=== PATIENT | female | born 1955 | race Two or more races ===

== ENCOUNTER → 2024-07-03 | Outpatient (CLI) | payer MEDICAID, SELFPAY ==
--- NOTE | 2024-07-03 09:30 | XR_ITS ---
EXAMINATION: XR esophogram standard HISTORY: 69-year-old female with upper esophageal dysphagia. COMPARISON: None TECHNIQUE: Assistant Front Office Manager radiographs of the chest and lateral neck were followed by multiple fluoroscopic images of the lower neck, chest, and abdomen during and after the uneventful administration of oral thin barium. FLUOROSCOPY TIME: 0.75 min AIR KERMA: 122.6 mGy FINDINGS: No pneumothorax or pleural effusion. Uncoiled aorta. Hiatal hernia. No consolidation. Calcifications aortic arch. No prevertebral soft tissue swelling. Calcific density left lateral neck, probably vascular. Degenerative changes of the cervical spine. Dental amalgam. No penetration or aspiration. No diverticulum identified. Intact primary and secondary contractions of the esophagus. Mild mass effect from aortic arch. Otherwise no intrinsic or extrinsic mass effect. Moderate to large hiatal hernia. Spontaneous gastroesophageal reflux to the level the clavicles. Ligament of Treitz in normal anatomic position. IMPRESSION: Moderate to large hiatal hernia with spontaneous gastroesophageal reflux to the level of the clavicles.
== END | disposition home or self-care (01) ==
LOC: SDIM 09:03
DX: K21.9 Gastro-esophageal reflux disease without esophagitis (principal); K44.9 Diaphragmatic hernia without obstruction or gangrene
CPT/HCPCS: 74220; A4699

== ENCOUNTER 2025-02-23 11:05 | Day surgery (SDC) | payer MEDICAID, SELFPAY ==
[2025-02-23] VITALS (14 sets, daily range): BP systolic 141–200; BP diastolic 65–91; PULSE 55–78; RESP 12–18; TEMP 36.1–36.7; O2SAT 95–100; BMI 28.0
--- NOTE | 2025-02-23 16:30 | SUR.OPER ---
AWARE OF PATIENT'S CONTINUED ELEVATED BLOOD PRESSURE, NO NEW ORDERS RECEIVED AT THIS TIME.
--- NOTE | 2025-02-23 16:45 | SUR.PHASEI ---
Arrived to [facility] via [facility]. Report received from Erica BANEGAS. No c/o pain or discomfort. No s/o distress. Responding to questions and commands appropriately.
--- NOTE | 2025-02-23 17:20 | SUR.PHASEII ---
Tolerating iced water PO. No complaints at this time.
--- NOTE | 2025-02-23 17:34 | SUR.PHASEII ---
Waiting for daughter to come receive discharge instructions. [place] she is on the way from [facility].
--- NOTE | 2025-02-23 18:10 | SUR.PHASEII ---
Discharged to daughter Brianne. Both patient and daughter Brianne verbalized understanding discharge instructions.
== END 2025-02-23 18:10 | disposition home or self-care (01) ==
PROVIDERS: Referring Provider Specialist; Visit Provider Specialist
PROC: (CPT 43239; principal; 2025-02-23 13:00)
DX: Z13.810 Encounter for screening for upper gastrointestinal disorder (principal); K21.01 Gastro-esophageal reflux disease with esophagitis, with bleeding; K29.50 Unspecified chronic gastritis without bleeding; K44.9 Diaphragmatic hernia without obstruction or gangrene; K31.89 Other diseases of stomach and duodenum
CPT/HCPCS: 43239; A4649; J1200; J2250; J3010; A9270